=== PATIENT | female | born 1955 | race African-American/Black ===

== ENCOUNTER 2018-12-10 10:59 | Emergency (ER) | payer BC ==
[~2018-12-10 10:59] MED LIST: Iopamidol 300 61% 100 ML VIAL FS ONE
[2018-12-10] MEDS ORDERED: Ondansetron PF 4 MG/2 ML Vial ONE (11:36)
[2018-12-10] MEDS ORDERED: Fentanyl 100 MCG/2 ML VIAL ONE ×2 (11:36→13:00)
[2018-12-10 11:58] LABS: Hemoglobin 10.1 g/dL (12.0-16.0); Mean Corpuscular HGB CONC 29.8 g/dL (32.0-36.0); Mean Corpuscular Hemoglobin 24.2 pg (27.0-31.0); Mean Corpuscular Volume 81.2 fL (78.0-98.0); Mean Platelet Volume 7.7 fL (7.4-10.4); Platelet Count 191 thou/uL (130-400); RBC Distribution Width 15.3 % (11.5-14.5); Red Blood Cell (RBC) Count 4.17 mill/uL (4.20-5.40); White Blood Cell (WBC) Count 10.3 thou/uL (4.8-10.8)
[2018-12-10 12:14] LABS: Band 4 % (5-11); Eosinophils 2 % (0-10); Hypochromia SLIGHT = 6-15 cells (100X) (0-5/hpf); Lymphocytes 9 % (21-51); MDiff Complete? YES; Monocytes 3 % (0-10); Neutrophil 82 % (42-75)
[2018-12-10 12:15] LABS: ALT (SGPT) 18 U/L (8-55); AST (SGOT) 28 U/L (5-34); Albumin 3.5 g/dL (3.4-4.8); Alkaline Phosphatase 60 U/L (40-150); Anion Gap 14 mmol/L (10-20); BUN (Urea Nitrogen) 14 mg/dL (9.8-20.1); Bilirubin, Total 0.6 mg/dL (0.2-1.2); Calc. Creatinine Clearance 0 mL/min (70-130); Calcium 9.6 mg/dL (7.8-10.44); Carbon Dioxide 23 mmol/L (23-31); Chloride 98 mmol/L (98-107); Estimated GFR-MDRD 81; Globulin 2.8 g/dL (2.4-3.5); Glucose 99 mg/dL (80-115); Lipase 6 U/L (8-78); Potassium 3.6 mmol/L (3.5-5.1); Protein, Total 6.3 g/dL (6.0-8.3); Sodium 131 mmol/L (136-145)
--- NOTE | 2018-12-10 13:10 | CT ---
CT ABDOMEN AND PELVIS WITH IV CONTRAST 12/10/2018 CLINICAL INFORMATION: Abdominal pain in a patient post chemotherapy secondary to breast cancer. COMPARISON: None. Technique: Multiple contiguous axial CT images are obtained through the abdomen and pelvis with IV contrast. Cor onal reformatted images are provided. FINDINGS: Lower Chest: Very tiny right pleural effusion is present. Minimal bibasilar atelectasis is noted. Vessels: Vascular calcifications are seen in the abdominal aorta and involving the iliac arteries. Abdomen: Portal vein:Patent Gallbladder: No calcified gallstones. Normal caliber wall. Liver: within normal limits. Pancreas: within normal limits. Spleen: within normal limits. Adrenals: within normal limits. Kidneys: A 1.7 cm hypodense lesion is seen in the midportion right kidney which does demonstrate flui d attenuation most compatible with a cyst. There is suggestion of a tiny thin linear septation suggesting Bosniak type II renal cystic lesion. Kidneys otherwise have a normal appearance bilaterall y. Peritoneum: There is free intraperitoneal gas scattered within the anterior aspect of the abdomen gre ater in the mid and upper abdomen. A small amount of free fluid is seen in the right paracolic gutter and inferior to the right hepatic lobe as well as small amount of free fluid seen within the p osterior aspect left lower quadrant and in the pelvis. Bowel: Multiple colonic diverticula are seen. There is no bowel wall thickening thickening involving the colon. Loops of small bowel are normal in caliber. The exact etiology for the free intraperitoneal gas and free fluid is uncertain, but findings are worrisome for a bowel perforation. The appendix is visualized and normal in caliber. Mesentery and Retroperitoneum: No enlarged mesenteric or retroperitoneal lymph nodes. Abdominal Wall: within normal limits. Pelvis: Reproductive Organs: No pelvic masses. Pelvis within normal limits. Bladder: within normal limits. Bones: Mild degenerative changes are seen in the spine. IMPRESSION: 1. Free intraperitoneal gas with scattered areas of free fluid within the abdomen. Findings are worri some for bowel perforation; although, the exact site of perforation is unable to be delineated on this examination. There are scattered colonic diverticuli seen throughout the colon. Surgical consult ation is recommended for further evaluation. 2. 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 3. Tiny right pleural effusion with mild bibasilar atelectasis. 4. Above findings discussed with Dr. Burns in the emergency department on 12/10/2018 at 1301 hours.
[2018-12-10] MEDS ORDERED: Piperacillin/Tazobactam 3.375 GM VIAL ONE (13:16)
[2018-12-10] MEDS ORDERED: Sodium Chloride 0.9% 100 ML ONE (13:16)
[2018-12-10] MEDS ORDERED: Sodium Chloride 0.9% 1,000 ML ONE (13:31)
[2018-12-10 13:44] LABS: Bilirubin Negative (Negative); Blood, Urine Negative (Negative); Clarity Clear (Clear); Glucose, Urine (Dipstick) Negative (Negative); Leukocyte Negative (Negative); Nitrite Negative (Negative); Protein, Urine (Dipstick) Negative (Neg-Trace); Specific Gravity, Urine 1.023 (1.002-1.036); Urobilinogen 0.2 mg/dL (0.2-1.0); pH, Urine 6.5 (5.0-9.0)
[2018-12-10 14:46] LABS: Lactic Acid 1.9 mmol/L (0.5-2.2)
== END 2018-12-10 15:20 | disposition short-term general hospital (02) ==
LOC: NAV ERS 10:59
DX: K63.1 Perforation of intestine (nontraumatic) (principal); E03.9 Hypothyroidism, unspecified; I10 Essential (primary) hypertension; Z79.899 Other long term (current) drug therapy; Z79.82 Long term (current) use of aspirin
CPT/HCPCS: 36415; 74177; 80053; 81003; 83605; 83690; 85025; 87040; 93005; 94760; 96361; 96365; 96375; 96376; J2270; J2405; J2543; J3010; J3490; J7050; Q9967